=== PATIENT | male | born 1965 | race Two or more races ===

== ENCOUNTER 2023-11-19 08:09 | Outpatient (REF) | payer MEDICAID, SELFPAY ==
[2023-11-19 09:37] LABS: Alanine Aminotransferase 25 U/L (0-40); Albumin Level 4.5 g/dL (3.5-5.0); Alkaline Phosphatase 78 U/L (39-117); Anion Gap 12 (12-20); Aspartate Amino Transferase 21 U/L (5-37); Bilirubin Total 0.3 mg/dL (0.0-1.0); Blood Urea Nitrogen 17 mg/dL (9-16); Calcium 9.2 mg/dL (8.4-10.2); Carbon Dioxide 25 mmol/L (22-29); Chloride 109 mmol/L (96-108); Cholesterol 193 mg/dL (<200); Estimated Glomerular Filt Rate > 60; Glucose Random 98 mg/dL (60-115); HDL Cholesterol 51 mg/dL (>40); LDL Cholesterol Calculated 130 mg/dL (<100); Potassium 4.9 mmol/L (3.3-5.1); Sodium 141 mmol/L (135-145); Total Protein 7.3 g/dL (6.5-8.0); Triglycerides 61 mg/dL (<150)
[2023-11-23 15:43] LABS: Testosterone, Total 569 ng/dL (250-1100)
== END 2023-11-19 08:10 | disposition home or self-care (01) ==
LOC: HO.LAB 08:09
PROVIDERS: PCP Nurse Practitioner Family; Visit Provider Nurse Practitioner Family
DX: R03.0 Elevated blood-pressure reading, without diagnosis of hypertension (principal); R53.83 Other fatigue
CPT/HCPCS: 36415; 80053; 80061; 84403

== ENCOUNTER 2024-06-29 08:26 | Outpatient (REF) | payer MEDICAID, SELFPAY ==
--- OUTSIDE RECORDS SUMMARY | 2024-06-29 08:32 | XMS_ITS | Clinical Summary ---
Author Organization [employer] [facility] Address [address] [place] [address] Care Team Providers Care Balling Head Tender Name Role Phone Alison Ngo NP Primary Care Provider [phone] Allergies No known active allergies Medications amLODIPine (Norvasc) 5 MG tablet Take 1 tablet (5 mg) by mouth Once per day. 30 tablet 4 09/05/19 25 Active omeprazole OTC (PriLOSEC OTC) 20 MG EC tablet Take 1 tablet (20 mg) by mouth before breakfast. Do not crush, chew, or split. 30 tablet 4 09/05/19 25 Active Blood Pressure Monitoring (Omron 3 Series BP Monitor) device USE TO CHECK BLOOD PRESSURE TWICE DAILY IN THE MORNING AND AT BEDTIME DIRECTED 4 Active aluminum chloride (Drysol) 20 % external solutionIndicat ions:Excessive sweating Apply topically at bedtime. Wash off in the morning. When excessive sweating has stopped, may reduce use to once or twice weekly 35 mL 1 5 06/26/19 26 Active Active Problems No known active problems Encounters Date Type Department Care Team Description 06/25/2024 10:30 AM EDT Office Visit [facility] [address] [place] [address] Alison Ngo NP Encounter to establish care (Primary Dx); Dietary counseling; Exercise counseling; Screening for colon cancer; Encounter for health-related screening; Elevated blood-pressure reading without diagnosis of hypertension; Tiredness; Excessive sweating 06/25/2024 Travel 06/01/2024 Population Health Risk Score [employer] [facility] (C3) Department [address] [place] [address] [phone] Provider, Population Health Generic 05/14/2024 Telephone [facility] [address] [place], [place] [phone] Shirley Moya MA Apr recall from Last 3 Months Immunizations Name Administration Dates Next Due Tdap 10/10/2018 Family History Medical History Relation Name Comments Hypertension Father Stroke Father Alzheimer's disease Mother Relation Name Status Comments Father Mother Social History Tobacco Use Types Packs/Day Years Used Date Smoking Tobacco: Former Cigarettes S tarted: 1999 Smokeless Tobacco: Never Tobacco Cessation:Counseling Given: Not Answered Alcohol Use Standard Drinks/Week Comments Not Currently 0 (1 standard drink = 0.6 oz pur e alcohol) occasionally Alcohol Answer Date Recorded How often do you have a drink containing alcohol ? 1 06/25/2024 How many drinks containing a lcohol do you have on a typical day when you are drinking? 0 06/25/2024 How often do you have six or more drinks on one occasion? 0 06/25/2024 Depression Answer Date Recorded Patient Health Questionnaire-9 Score 12 09/05/2023 Patient Health Questionnaire-9 Score 12 09/05/2023 Last PHQ-9: Questionnaire Data Not on file 0 09/05/2023 Housing Stability Answer Date Recorded What is your housing situation today? I have housing today, but I am worried about losing housing in the future 06/25/[address] you li ve. Do you have problems with any of the following? None of the above 06/25/2024 Food Insecurity Answer Date Recorded Within the past 12 months, y ou worried that your food would run out before you got money to buy more: Often true 09/05/2023 Within the past 12 months,th e food you bought just didn't last and you didn't have enough money to get more: Often true Transportation Answer Date Recorded In the past 12 months, has l ack of transportation kept you from medical appts, meetings, work or from getting things needed for daily living? No 06/25/2024 Utilities Answer Date Recorded In the past 12 months, has t he electric, gas, oil or water company threatened to shut off services in your home? No 06/25/2024 Depression Answer Date Recorded Patient Health Questionnaire-2 Score 1 09/05/2023 Internet Access Answer Date Recorded Internet Access Q1 No 06/25/2024 Internet Access Q2 My internet/Wi-Fi ac cess is not consistent or reliable 06/25/2024 Sex and Gender Information Value Date Recorded Sex Assigned at Male 01/18/2022 10:35 AM EDT Legal Sex Male 10:35 AM EDT Gender Identity Male 01/18/2022 10:35 AM EDT Sexual Orientation Straight 01/18/2022 10 :35 AM EDT Last Filed Vital Signs Vital Sign Reading Time Taken Comments Blood Pressure 122/86 06/25/2024 11:09 AM EDT Pulse 81 06/25/2024 10:20 AM EDT Temperature 36.4 ??C (97.6 ??F) 06/25/2024 10:20 AM E DT Respiratory Rate 20 06/25/2024 10:20 AM EDT Oxygen Saturation 98% 06/25/2024 10:20 AM EDT Inhaled Oxygen Concentration - - Weight 79.9 kg (176 lb 3.2 oz) 06/25/2024 10:20 AM EDT Height 165.1 cm (5' 5 ) 06/25/2024 10:20 AM EDT Body Mass Index 29.32 06/25/2024 10:20 AM EDT Plan of Treatment Health Maintenance Due Date Last Done Comments CT Colonography 1967 Colonoscopy 1967 Colorectal Cancer Screening 1967 FIT DNA/Cologuard 1967 FIT 1967 FOBT 1967 HIV Screening 1967 Sigmoidoscopy 1967 Hepatitis C Screening 11/03/1985 Hepatitis B Vaccines (1 of 3 - 19+ 3-dose series) 11/03/1986 Pneumococcal Vaccine: 50+ Years (1 of 1 - PCV) 11/03/2017 Zoster Vaccines (1 of 2) 11/03/2017 COVID-19 Vaccine ( - 2023-2 5 season) 2023 Influenza Vaccine (#1) 2023 Depression Monitoring 03/06/2024 09/05/2023 , 09/05/2023 Depression Screening 09/04/2024 09/05/2023, 09/05/2023 Alcohol/Substance Use Screening 06/25/2025 06/25/2024 SDOH Screening 06/25/2025 06/25/2024 Tobacco Screening 06/25/2025 06/25/2024 DTaP/Tdap/Td Vaccines (2 - T d or Tdap) 10/10/2028 10/10/2018 Lipid Panel 11/18/2028 11/19/2023 RSV Patients and Patients Aged 60 years or older (1 - 1-dose 75+ series) 11/03/2042 HIB Vaccines Aged Out No longer eligi ble based on patient's age to complete this topic HPV Vaccines Aged Out No longer eligi ble based on patient's age to complete this topic Hepatitis A Vaccines Aged Out No long er eligible based on patient's age to complete this topic IPV Vaccines Aged Out No longer eligi ble based on patient's age to complete this topic Meningococcal Vaccine Aged Out No melisa jess eligible based on patient's age to complete this topic RSV under 20 months Aged Out No longe r eligible based on patient's age to complete this topic Rotavirus Vaccines Aged Out No longer eligible based on patient's age to complete this topic Procedures Procedure Name Priority Date/Time Associated Diagnosis Comments LIPID PANEL, STANDARD Routine 11/19/2023 8:20 AM EDT Elevated blood pressure reading without diagnosis of hypertension from Last 3 Months or Most Recently Relevant to Health Maintenance Results * (ABNORMAL) Lipid Panel, Standard (11/19/2023 8:20 AM EDT) Triglycerides 61 <150 mg/dL [facility] Comment:Desirable Triglyceri de: less than 150 mg/dLBorderline High Triglyceride 150-199 mg/dLHigh Triglyceride: 200-499 mg/dLVery High Triglyceride: greater than or equal to 5OO mg/dL Cholesterol 193 <200 mg/dL [facility] Comment:Desirable Cholestero l: less than 200 mg/dLBorderline High Cholesterol: 200-239 mg/dLHigh Cholesterol: greater than 239 mg/dL LDL Cholesterol Calculated 130(H) <100 mg/dL [facility] Comment:Desirable LDL: less than 100 mg/dLNear Optimal/Above Optimal LDL: 110- 129 mg/dLBorderline High LDL: 130-159 mg/dLHigh LDL: 160-189 mg/dLVery High LDL: greater than or equal to 190 mg/dL HDL Cholesterol 51 >40 mg/dL [facility] Comment:Desirable HDL: great er than 40 mg/dL Note: This HDL assay may give artificially low results in patients with liver disease. Blood Venous blood specimen / Unknown 11/19/2023 8:20 AM EDT 11/19/2023 8:33 AM EDT us Taya Moe COSMETOLOGY EDUCATOR LAB BLOOD ORDERABLES Final Resu lt [facility] [address] [place] [address] [phone] from Last 3 Months or Most Recently Relevant to Health Maintenance Insurance [address] [place] [id number] [facility] Care Teams Balling Head Tender Relationship Specialty Start Date End Date Alison Ngo NP [address] [place] [id number] PCP - General Family Medicine 11/23/23
--- OUTSIDE RECORDS SUMMARY | 2024-06-29 08:32 | XMS_ITS | Encounter Summary ---
Author Organization [employer] Address [address] [place] [address] [address] [place] [address] Care Team Providers Care Line Camera Operator Name Role Phone Ailson Ngo NP Primary Care Provider [phone] Reason for Visit * Reason Comments Transfer patient Encounter Details Date Type Department Care Team ([facility] st Contact Info) Description 06/25/2024 10:30 AM EDT Office Visit [facility] [address] [place] [address] Alison Ngo NP [address] [place] [address] Encounter to establish care (Primary Dx); Dietary counseling; Exercise counseling; Screening for colon cancer; Encounter for health-related screening; Elevated blood-pressure reading without diagnosis of hypertension; Tiredness; Excessive sweating Social History Tobacco Use Types Packs/Day Years Used Date Smoking Tobacco: Former Cigarettes S tarted: 2000 Smokeless Tobacco: Never Tobacco Cessation:Counseling Given: Not [...] Orientation Straight 01/18/2022 10 :35 AM EDT documented as of this encounter Last Filed Vital Signs Vital Sign Reading [...] Mass Index 29.32 06/25/2024 10:20 AM EDT documented in this encounter Plan of Treatment Scheduled Orders Name Type Priority Associated Diagnoses Orde r Schedule Cologuard?? colon cancer screening Lab Routine Screening for colon cancer Ordered: 06/25/2024 Basic Metabolic Panel Lab Routine Elevated blood-pressure reading without diagnosis of hypertension Expected: 06/25/2024 (Approximate), Expires: 06/25/2025 Lipid Panel, Standard Lab Routine Encounter for health-related screening Expected: 06/25/2024 (Approximate), Expires: 06/25/2025 TSH W/Reflex to FT4 Lab Routine Tiredness Expected: 06/25/2024 (Approximate), Expires: 06/25/2025 Testosterone, Total, males (Adult), IA Lab Routine Tiredness Expected: 06/25/2024 (Approximate), Expires: 06/25/2025 documented as of this encounter Visit Diagnoses Diagnosis Encounter to establish care- Primary Dietary counseling Dietary surveillance and counseling Exercise counseling Screening for colon cancer Special screening for malignant neoplasms, colon Encounter for health-related screening Elevated blood-pressure reading without diagnosis of hypertension Elevated blood pressure reading without diagnosis of hypertension Tiredness Other malaise and fatigue Excessive sweating Generalized hyperhidrosis documented in this encounter Additional Health Concerns Assessment Noted Time PHQ-9 Depression Total Score: 12 09/04/2 024 4:13 PM EDT documented as of this encounter Care Teams Line Camera Operator Relationship Specialty Start Date End Date Alison Ngo NP [address] [place] [id number] PCP - General Family Medicine 11/23/23 documented as of this encounter
--- OUTSIDE RECORDS SUMMARY | 2024-06-29 08:32 | XMS_ITS | Encounter Summary ---
Author Organization [employer] Address [address] [place] [address] Care Team Providers Care Risk Modeler Name Role Phone Alison Ngo JAIDA Primary Care Provider [phone] Encounter Details Date Type Department Care Team (Latest Contact Info) Description 06/25/2024 Travel Social History Tobacco Use Types Packs/Day Years Used Date Smoking Tobacco: Former Cigarettes S tarted: 1999 Smokeless Tobacco: Never Alcohol Use Standard Drinks/Week Comments Not Currently [...] AM EDT documented as of this encounter Plan of Treatment Not on file documented as of this encounter Visit Diagnoses Not on filedocumented in this encounter Additional Health Concerns Assessment Noted Time PHQ-9 Depression Total Score: 12 024 4:13 PM EDT documented as of this encounter Care Teams Risk Modeler Relationship Specialty Start Date End Date Alison Ngo NP [address] [place] [id number] PCP - General Family Medicine 11/23/23 documented as of this encounter
[2024-06-29 12:04] LABS: Anion Gap 12 (12-20); Blood Urea Nitrogen 16 mg/dL (9-16); Calcium 9.5 mg/dL (8.4-10.2); Carbon Dioxide 26 mmol/L (22-29); Chloride 108 mmol/L (96-108); Cholesterol 238 mg/dL (<200); Estimated Glomerular Filt Rate > 60; Glucose Random 95 mg/dL (60-115); HDL Cholesterol 56 mg/dL (>40); LDL Cholesterol Calculated 166 mg/dL (<100); Potassium 4.9 mmol/L (3.3-5.1); Sodium 141 mmol/L (135-145); Triglycerides 83 mg/dL (<150)
[2024-06-29 12:20] LABS: TSH reflex Free T4 0.95 uIU/mL (0.32-4.0)
[2024-07-04 15:29] LABS: Testosterone, Total 608 ng/dL (250-1100)
== END 2024-06-29 08:27 | disposition home or self-care (01) ==
LOC: HO.HHCL 08:26
PROVIDERS: Visit Provider Nurse Practitioner
DX: R03.0 Elevated blood-pressure reading, without diagnosis of hypertension (principal); R53.83 Other fatigue; Z13.9 Encounter for screening, unspecified
CPT/HCPCS: 36415; 80048; 80061; 84403; 84443

== ENCOUNTER 2025-02-21 11:12 | Outpatient (REF) | payer MEDICAID, SELFPAY ==
--- NOTE | ~2025-02-21 | XR_ITS ---
EXAMINATION: XR CERVICAL SPINE CLINICAL INFORMATION: pain COMPARISON: None available. TECHNIQUE: AP lateral and atlantoodontoid views . FINDINGS: Craniocervical junction is intact. Marginal osteophyte formation and endplate sclerosis and decreased intervertebral disc height at C6-7 and to a lesser extent C5-6 and C4-5 level. Grade 1 anterolisthesis C4-5. No lytic or blastic lesions. Upper airway is patent. XR/XR thoracic spine 2V IMPRESSION: Multilevel cervical spondylosis pronounced at C6-7 and to a lesser extent C5-6. Grade 1 anterolisthesis C3-4. EXAMINATION: XR THORACIC SPINE CLINICAL INFORMATION: pain COMPARISON: None available. TECHNIQUE: AP lateral and swimmer's projection. FINDINGS: Multilevel endplate sclerosis and marginal osteophyte formation throughout the axial skeleton. No acute cortical disruption or malalignment. No lytic or blastic lesions. IMPRESSION: Multilevel spondylosis without acute fracture or listhesis. EXAMINATION: XR LUMBOSACRAL SPINE CLINICAL INFORMATION: pain COMPARISON: None available. TECHNIQUE: AP and lateral views FINDINGS: Multilevel marginal osteophyte formation and endplate sclerosis with decreased intervertebral disc height pronounced at L5-S1 and to a lesser extent L4-5. Facet joint hypertrophy at L4-5 and L5-S1. Levoconvex curvature apex at L3. No acute cortical disruption. No gross malalignment. No lytic or blastic lesions. IMPRESSION: Multilevel spondylosis and levoconvex scoliosis without acute fracture or trauma-related listhesis. Electronically signed by: Fantasma Parry MD 02/21/2025 12:16 PM [facility]
--- NOTE | ~2025-02-21 | XR_ITS ---
EXAMINATION: XR CERVICAL SPINE CLINICAL INFORMATION: pain COMPARISON: None available. TECHNIQUE: AP lateral and atlantoodontoid views . FINDINGS: Craniocervical junction is intact. Marginal osteophyte formation and endplate sclerosis and decreased intervertebral disc height at C6-7 and to a lesser extent C5-6 and C4-5 level. Grade 1 anterolisthesis C4-5. No lytic or blastic lesions. Upper airway is patent. XR/XR lumbar spine 2-3V IMPRESSION: Multilevel cervical spondylosis pronounced at C6-7 and to a lesser extent C5-6. Grade 1 anterolisthesis C3-4. EXAMINATION: XR THORACIC SPINE CLINICAL INFORMATION: pain COMPARISON: None available. TECHNIQUE: AP lateral and swimmer's projection. FINDINGS: Multilevel endplate sclerosis and marginal osteophyte formation throughout the axial skeleton. No acute cortical disruption or malalignment. No lytic or blastic lesions. IMPRESSION: Multilevel spondylosis without acute fracture or listhesis. EXAMINATION: XR LUMBOSACRAL SPINE CLINICAL INFORMATION: pain COMPARISON: None available. TECHNIQUE: AP and lateral views FINDINGS: Multilevel marginal osteophyte formation and endplate sclerosis with decreased intervertebral disc height pronounced at L5-S1 and to a lesser extent L4-5. Facet joint hypertrophy at L4-5 and L5-S1. Levoconvex curvature apex at L3. No acute cortical disruption. No gross malalignment. No lytic or blastic lesions. IMPRESSION: Multilevel spondylosis and levoconvex scoliosis without acute fracture or trauma-related listhesis. Electronically signed by: Fantasma Parry MD 02/21/2025 12:16 PM [facility]
--- NOTE | ~2025-02-21 | XR_ITS ---
EXAMINATION: XR CERVICAL SPINE CLINICAL INFORMATION: pain COMPARISON: None available. TECHNIQUE: AP lateral and atlantoodontoid views . FINDINGS: Craniocervical junction is intact. Marginal osteophyte formation and endplate sclerosis and decreased intervertebral disc height at C6-7 and to a lesser extent C5-6 and C4-5 level. Grade 1 anterolisthesis C4-5. No lytic or blastic lesions. Upper airway is patent. XR/XR cervical spine 3V IMPRESSION: Multilevel cervical spondylosis pronounced at C6-7 and to a lesser extent C5-6. Grade 1 anterolisthesis C3-4. EXAMINATION: XR THORACIC SPINE CLINICAL INFORMATION: pain COMPARISON: None available. TECHNIQUE: AP lateral and swimmer's projection. FINDINGS: Multilevel endplate sclerosis and marginal osteophyte formation throughout the axial skeleton. No acute cortical disruption or malalignment. No lytic or blastic lesions. IMPRESSION: Multilevel spondylosis without acute fracture or listhesis. EXAMINATION: XR LUMBOSACRAL SPINE CLINICAL INFORMATION: pain COMPARISON: None available. TECHNIQUE: AP and lateral views FINDINGS: Multilevel marginal osteophyte formation and endplate sclerosis with decreased intervertebral disc height pronounced at L5-S1 and to a lesser extent L4-5. Facet joint hypertrophy at L4-5 and L5-S1. Levoconvex curvature apex at L3. No acute cortical disruption. No gross malalignment. No lytic or blastic lesions. IMPRESSION: Multilevel spondylosis and levoconvex scoliosis without acute fracture or trauma-related listhesis. Electronically signed by: Fantasma Parry MD 02/21/2025 12:16 PM [facility]
[2025-02-21 14:19] LABS: Cholesterol 230 mg/dL (<200); HDL Cholesterol 59 mg/dL (>40); Triglycerides 141 mg/dL (<150)
[2025-02-22 04:52] LABS: HBS Num1 0.81 mIU/mL (0-7.99); HBc Num1 0.06 S/CO (0.00-0.79); HBsAGNum1 0.27 S/CO (0.00-0.99); HIV Num 1 0.05 S/CO (0.00-0.99); Hepatitis A Antibody IgM 0.19 Index (0-0.79); Hepatitis B Surface Antigen Negative (Negative); ~HepC Num1 0.08 S/CO (0.00-0.79); ~Hepatitis A Antibody IgM Nonreactive (Nonreactive); ~Hepatitis B Surface Antibody NONREACTIVE (Nonreactive); ~Hepatitis C Antibody Nonreactive (Nonreactive)
== END 2025-02-21 11:13 | disposition home or self-care (01) ==
LOC: HO.HHCX 11:12
PROVIDERS: PCP Nurse Practitioner; Visit Provider Nurse Practitioner
DX: M54.6 Pain in thoracic spine (principal); M54.50 Low back pain, unspecified; M54.2 Cervicalgia; G89.29 Other chronic pain; E78.2 Mixed hyperlipidemia; Z13.89 Encounter for screening for other disorder; Z11.4 Encounter for screening for human immunodeficiency virus [HIV]; Z11.59 Encounter for screening for other viral diseases
CPT/HCPCS: 36415; 72040; 72070; 72100; 80061; 86704; 86706; 86709; 86803; 87340; 87389

== ENCOUNTER → 2025-02-21 11:23 | Outpatient (BNV) | payer MEDICAID, SELFPAY | PROVIDERS: PCP Nurse Practitioner; Visit Provider Radiology Diagnostic Radiology | DX: M54.50 Low back pain, unspecified (principal); M47.812 Spondylosis without myelopathy or radiculopathy, cervical region; M54.6 Pain in thoracic spine | CPT/HCPCS: 72040; 72070; 72100 ==